=== PATIENT | female | born 1965 | race Caucasian/White ===

== ENCOUNTER 2018-04-17 13:07 | Emergency (ER) | END 2018-04-17 14:22 | disposition home or self-care (01) ==

== ENCOUNTER 2018-05-27 17:02 | Emergency (ER) | END 2018-05-27 19:58 | disposition home or self-care (01) ==

== ENCOUNTER 2018-10-17 09:17 | Inpatient (IN) | payer MEDICAID ==
[~2018-10-17] VITALS: Ht 162.6 cm; Wt 83.3 kg
[~2018-10-17 09:17] MED LIST: ALBU18HF INHALATION; BENZ-6 PO; OFLO5DRO46 LEFT EYE; PRED20TA PO
[2018-10-17] MEDS ORDERED: ASPIRIN 325 MG TAB PO ONE (11:00)
--- NOTE | 2018-10-17 11:04 | ERD ---
ER Documentation Chief Complaint Chief Complaint numbess on the left face, arm leg - started 8 am today HPI 53-year-old female presents to the emergency department complaining of left- sided body numbness. Patient was in her usual state of health, with a last known well time of 2 days ago, at which time she began developing a nonspecific dizziness and a nonspecific headache. This was not acute in onset or thunderclap in nature but continued throughout the last 2 days. Today, she began developing numbness about the left side of her face, upper extremity and lower extremity all on the left side. She had no difficulty speaking, focal weakness or numbness. ROS All systems reviewed and are negative except as per history of present illness. Medications Home Meds Active Scripts Albuterol Sulfate* (Ventolin HFA*) 18 Gm Hfa.aer.ad, 2 PUFF INHALATION Q4H, #1 INHALER Prov:WILIAN LUNA PA-C 05/27/18 Benzonatate* (Tessalon Perle*) 100 Mg Capsule, 100 MG PO Q8H PRN for COUGH, #20 CAP Prov:WILIAN LUNA PA-C 05/27/18 Prednisone* (Prednisone*) 20 Mg Tab, 40 MG PO DAILY for 4 Days, TAB Prov:WILIAN LUNA PA-C 05/27/18 Ofloxacin* (Ocuflox*) 0.3%-5 Ml Ophth Drops, 1 DROP LEFT EYE QID, #1 BOTTLE Prov:ALEXIS JOHNSON PA-C 04/17/18 Allergies Allergies: Coded Allergies: No Known Allergy (Unverified , 04/17/18) PMhx/Soc Medical and Surgical Hx: pt denies Medical Hx, pt denies Surgical Hx Hx Alcohol Use: No Hx Substance Use: No Hx Tobacco Use: No Smoking Status: Never smoker FmHx Noncontributory for chief complaint Physical Exam Vitals Vital Signs Date Temp Pulse Resp B/P (MAP) Pulse Ox O2 O2 Flow FiO2 Time Delivery Rate 10/17/18 Nasal 2 09:35 Cannula 10/17/18 98.4 72 19 149/91 98 09:19 (110) Physical Exam GENERAL: The patient is well developed and appropriate for usual state of health in no apparent distress HEENT: Pupils equal, round, and reactive to light. EOMI. There is no scleral icterus. NECK: C-spine is soft and supple, there is no meningismus. There is no cervical lymphadenopathy. LUNGS: Clear to auscultation bilaterally. There are no rales, wheezes or rhonchi. HEART: Regular rate and rhythm, no murmurs, clicks, rubs or gallops. ABDOMEN: Soft, non-tender, non-distended. There are bowel sounds in all four quadrants. No rebound or guarding. EXTREMITIES: There is no peripheral cyanosis or edema. No focal swelling or er ythema. Neuro: Patient is awake, alert, oriented. Pupils are midrange, equal round and reactive to light. No nystagmus is noted. No diplopia is noted. No visual field deficits is noted. Face is symmetric, tongue is midline. Patient has subjective sensory deficits on the left side of the face when compared to the right. Motor strength is normal without drift in both upper extremities and lo wer extremities. Sensory examination is subjectively diminished on the left upper and lower extremity. Gait was assessed and was noted to be normal. Finger to nose is normal bilaterally. Speech is fluent. Comprehension is fluent SKIN: No rash or concerns. HEME/LYMPHATIC: There is no evidence of excessive bruising or lymphedema. PSYCHIATRIC: The patient does not appear anxious or depressed. Result Diagram: 10/17/18 0936 10/17/18 0936 Results 24 hrs Laboratory Tests Test 10/17/18 09:36 White Blood Count 7.6 10^3/ul Red Blood Count 4.65 10^6/ul Hemoglobin 13.8 g/dl Hematocrit 41.7 % Mean Corpuscular Volume 89.7 fl Mean Corpuscular Hemoglobin 29.7 pg Mean Corpuscular Hemoglobin Concent 33.1 g/dl Red Cell Distribution Width 13.2 % Platelet Count 310 10^3/UL Mean Platelet Volume 10.7 fl Immature Granulocytes % 0.500 % Neutrophils % 56.9 % Lymphocytes % 30.1 % Monocytes % 7.9 % Eosinophils % 3.9 % Basophils % 0.7 % Nucleated Red Blood Cells % 0.0 /100WBC Immature Granulocytes # 0.040 10^3/ul Neutrophils # 4.3 10^3/ul Lymphocytes # 2.3 10^3/ul Monocytes # 0.6 10^3/ul Eosinophils # 0.3 10^3/ul Basophils # 0.1 10^3/ul Nucleated Red Blood Cells # 0.0 10^3/ul Prothrombin Time 12.1 Sec Prothrombin Time Ratio 0.9 INR International Normalized Ratio 0.89 Activated Partial Thromboplast Time 30.6 Sec Sodium Level 140 mmol/L Potassium Level 4.0 mmol/L Chloride Level 103 mmol/L Carbon Dioxide Level 27 mmol/L Anion Gap 10 Blood Urea Nitrogen 13 mg/dl Creatinine 0.66 mg/dl Est Glomerular Filtrat Rate mL/min > 60 mL/min Glucose Level 85 mg/dl Hemoglobin A1c 5.4 % Calcium Level 9.5 mg/dl Total Bilirubin 0.9 mg/dl Direct Bilirubin 0.00 mg/dl Indirect Bilirubin 0.9 mg/dl Aspartate Amino Transf (AST/SGOT) 29 IU/L Alanine Aminotransferase (ALT/SGPT) 31 IU/L Alkaline Phosphatase 80 IU/L Troponin I < 0.012 ng/ml Total Protein 8.0 g/dl Albumin 4.5 g/dl Globulin 3.50 g/dl Albumin/Globulin Ratio 1.28 Triglycerides Level 188 mg/dl Cholesterol Level 233 mg/dl LDL Cholesterol, Calculated 149 mg/dl HDL Cholesterol 46 mg/dl Cholesterol/HDL Ratio 5.0 RATIO Current Medications Medications Dose Sig/Smith[place] Start Time Status Last (Trade) Ordered Route PRN Stop Time Admin Dose Reason Admin Aspirin 325 mg ONCE ONCE 10/17/18 (Aspirin) PO 11:00 10/17/18 11:01 Procedures/MDM Patient was taken to a room, seen and evaluated. Comfort measures were initiated. Diagnostic tests were ordered and reviewed. 3 LEAD RHYTHM STRIP: Normal sinus rhythm without ectopy EK lead EKG reviewed by myself: Normal Sinus Rhythm Normal [place] and intervals No ST elevation, depression, or T wave inversion Impression: Normal EKG RADIOLOGY: Reviewed with the radiologist CONSULTATION: Hospitalist was notified for admission REEVALUATION: 1045: Diagnostic tests were appreciated. Patient remained neurologically unchanged and stable. Blood pressure remained stable. MEDICAL DECISION MAKIN-year-old female resents with new onset neurologic symptoms that are over 2 days old. Symptoms are nonspecific and she has an NIH SS of 0 with only subjective sensory deficits. Overall, it is unclear if this is truly stroke related or not. However, given her ongoing symptoms and as per my discussions with her, we will admit for an MRI and further evaluation. Even if this is a stroke, she is out of the window for TPA or vascular intervention especially given her low NIH SS score. Departure Diagnosis: Primary Impression: Numbness Condition: Fair YANIRA SIMS Oct 17, 2018 11:04
--- NOTE | 2018-10-17 13:54 | HP ---
Date/Time of Note Date/Time of Note DATE: 10/17/18 TIME: 13:50 Assessment/Plan VTE Prophylaxis Pharmacological prophylaxis: LMWH Lines/Catheters IV [facility]from [facility] [place] [facility] Assessment/Plan Hospital Course 53-year-old female who presents with a 2-day history of left-sided numbness admitted and managed for follows: 1. Left-sided numbness rule out acute CVA vs TIA: Symptoms improved 2. Headaches and dizziness associated with above 3. Dyslipidemia with hypertriglyceridemia and hypercholesterolemia Plan: Admit to telemetry, stroke workup, ACS rule out, blood pressure management, rule out comorbidities like diabetes, thyroid disease. Statin therapy, neurology consult. Further interventions per course Result Diagram: 10/17/18 0936 10/17/18 0936 Results 24hrs Laboratory Tests Test 10/17/18 09:36 White Blood Count 7.6 Red Blood Count 4.65 Hemoglobin 13.8 Hematocrit 41.7 Mean Corpuscular Volume 89.7 Mean Corpuscular Hemoglobin 29.7 Mean Corpuscular Hemoglobin Concent 33.1 Red Cell Distribution Width 13.2 Platelet Count 310 Mean Platelet Volume 10.7 H Immature Granulocytes % 0.500 H Neutrophils % 56.9 Lymphocytes % 30.1 Monocytes % 7.9 Eosinophils % 3.9 Basophils % 0.7 Nucleated Red Blood Cells % 0.0 Immature Granulocytes # 0.040 H Neutrophils # 4.3 Lymphocytes # 2.3 Monocytes # 0.6 Eosinophils # 0.3 Basophils # 0.1 Nucleated Red Blood Cells # 0.0 Prothrombin Time 12.1 Prothrombin Time Ratio 0.9 INR International Normalized Ratio 0.89 Activated Partial Thromboplast Time 30.6 Sodium Level 140 Potassium Level 4.0 Chloride Level 103 Carbon Dioxide Level 27 Anion Gap 10 Blood Urea Nitrogen 13 Creatinine 0.66 Est Glomerular Filtrat Rate mL/min > 60 Glucose Level 85 Hemoglobin A1c 5.4 Calcium Level 9.5 Total Bilirubin 0.9 Direct Bilirubin 0.00 Indirect Bilirubin 0.9 Aspartate Amino Transf (AST/SGOT) 29 Alanine Aminotransferase (ALT/SGPT) 31 Alkaline Phosphatase 80 Troponin I < 0.012 Total Protein 8.0 Albumin 4.5 Globulin 3.50 H Albumin/Globulin Ratio 1.28 Triglycerides Level 188 H Cholesterol Level 233 H LDL Cholesterol, Calculated 149 HDL Cholesterol 46 Cholesterol/HDL Ratio 5.0 HPI/ROS Admit Date/Time Admit Date/Time Hx of Present Illness 53-year-old female who had presented to the emergency room with left-sided numbness that started approximately 2 days ago with some associated dizziness and frontal headaches. AND DIZZINESS There is no focal weakness, at this time symptoms have somewhat improved. She is being admitted for stroke workup. There is no fever. No chest pain, no abdominal pain, no nausea or vomiting. She denies dysuria or hematuria.This is the first episode, patient has not had history of similar in the past Past medical history: patient denies Surgical history: DENIES Allergies penicillins Social history denies tobacco alcohol or illicit drug use Family history: Noncontributory Review of systems: 12 point review of system was done pertinent findings per HPI ROS see hpi PMH/Family/Social Past Medical History see hpi Coded Allergies: Penicillins (Unverified Allergy, Unknown, 10/17/18) Social History Smoking Status: Never smoker Exam/Review of Systems Vital Signs Vitals Vital Signs Date Temp Pulse Resp B/P (MAP) Pulse Ox O2 O2 Flow FiO2 Time Delivery Rate 10/17/18 Nasal 2 09:35 Cannula 10/17/18 98.4 72 19 149/91 98 09:19 (110) Exam Exam General: A&O x3, answering questions appropriately HEENT: NC/ AT. PERRL. EOM intact Neck: supple CVS: S1, S2, RRR. no murmurs. no pain on chest wall palpation Lungs: CTA b/l. no wheezing or rhonchi Abd: soft, nontender, +BS Ext: moving all extremities skin: no rashes Additional Comments I reviewed EKG Rate: Within normal limits Rhythm: sinus Note: No ST elevation or depressions noted concerning for acute ischemic event. PROCEDURE: CT Brain without contrast. CLINICAL INDICATION: Possible stroke TECHNIQUE: A CT of the brain was performed utilizing axial imaging from the skull base through the vertex without IV contrast. Multiplanar reformatted imag es were made. Images were reviewed on a PACS workstation. CTDIvol: 48.07 mGy DLP: 799.20 mGycm DICOM images are available. One or more of the following dose reduction techniques were utilized: 1.) Automated exposure control 2.) Adjustment of the mA +/- kV according to patient's size 3.) Use of iterative reconstruction technique. COMPARISON: None FINDINGS: CALVARIUM: Regional bones are intact. SINUSES: Paranasal sinuses and mastoid air cells are clear. BRAIN: There is no evidence of intracranial hemorrhage. Prominence of ventricles and cisterns is normal for age. [place] - white differentiation is preserved and there is no evidence of an acute or subacute territorial infarction. No intracranial mass or mass effect. IMPRESSION: Negative unenhanced head CT. RPTAT: HJBB Physician Lakshmi Date Time Electronically viewed and signed by Physician Lakshmi on 10/17/2018 10:01 PROCEDURE: XR Chest. CLINICAL INDICATION: Stroke. TECHNIQUE: Chest x-ray, single view. COMPARISON: None. FINDINGS: Medical/support devices: None. Heart/mediastinum: The cardiomediastinal silhouette is normal. Pulmonary vascular markings are normal. Lungs: Low lung volumes are observed. There is no focal pulmonary parenchymal consolidation or evidence of pleural effusion. Additional: Skeletal structures are unremarkable. The visualized upper abdomen is unremarkable. IMPRESSION: Unremarkable chest x-ray. RPTAT: AAQQ .Ronna Kauffman MD, MD Date Time Electronically viewed and signed by .Ronna Kauffman MD, MD on 10/17/2018 09:49 .T/ CC: YANIRA SIMS [phone] MERLE MORENO Oct 17, 2018 13:54
[2018-10-17] MEDS ORDERED: HYDROCODONE/APAP (5/325) TAB PO PRN (14:00)
[2018-10-17] MEDS ORDERED: DOCUSATE SODIUM 100 MG CAP PO PRN (14:00)
[2018-10-17] MEDS ORDERED: ONDANSETRON 4 MG INJ IV PRN (14:00)
--- NOTE | 2018-10-17 16:50 | RADRPT ---
Echocardiogram Report Patient Name: TAMARA MARTÍNEZPatient ID: [id number] : 1965 (53y 4m)Study Date: 10/17/2018 2:11:46 PM Gender: FAccession #: [id number] Tech: TREVON Location: Ref.Physician: MERLE MORENO Height(Cm): BSA: Weight(Kg): Quality: GoodAccount #: Procedures: Echocardiographic Report: Transthoracic echocardiogram with complete 2D, M-Mode, and doppler examination. Indications: Transient Ischemic Attack. Measurements: 2D/M Mode Doppler Measurement Value Normal Range Measurement Value Normal Range AoR Diam MM 3.1 [ 2.3 - 3.1 ] cm CHANTEL Vmax 2.5 [ 2.0 - 4.0 ] cm2 ACS MM 2.0 [ 2.7 - 3.3 ] cm AV Mean Louis 0.8 [ 70.0 - 90.0 ] cm/sec LA/Ao MM 0.9 ratio AV Mean PG 3.0 [ 2.0 - 4.0 ] mmHg LA Dimen MM 2.7 AV Peak Louis 1.1 [ 100.0 - 170.0 ] cm/sec IVS/LVPW 2D 1.0 ratio AV Peak PG 5.0 [ 2.0 - 9.0 ] mmHg LVOT Diam 2.0 [ 2.1 - 2.5 ] cm AV VTI 25.1 cm LVOT Area 3.1 cm2 LVOT Peak Louis 0.9 [ 70.0 - 110.0 ] cm/sec LVOT Peak PG 3.0 [ 2.0 - 6.0 ] mmHg MV E Peak Louis 0.8 [ 60.0 - 130.0 ] cm/sec MV A Peak Louis 1.0 [ 100.0 - 120.0 ] cm/sec MV E/A 0.8 [ 0.8 - 1.5 ] ratio MV Decel Time 222 [ 104 - 258 ] msec Lat E` Louis 0.1 [ 10.0 - 15.0 ] cm/sec Med E` Louis 0.1 cm/sec MV E/A 0.8 [ 0.8 - 1.5 ] ratio TR Peak Louis 2.3 [ 100.0 - 280.0 ] cm/sec TR Peak PG 22.0 mmHg PV Peak Louis 0.5 [ 40.0 - 80.0 ] cm/sec PV Peak PG 1.0 mmHg Findings: Left Ventricle: Normal left ventricular systolic function. Normal left ventricular cavity size. Normal left ventricular wall thickness. Ejection fraction is visually estimated at 55-60 %. Tissue Doppler/Mitral Doppler indices are consistent with impaired relaxation (Stage I diastolic dysfunction). Right Ventricle: Normal right ventricular size. Normal right ventricular systolic function. Left Atrium: There is mild enlargement of left atrium. Right Atrium: The right atrium is normal in size. Mitral Valve: Normal appearance of the mitral valve. Mild mitral valve regurgitation. Aortic Valve: Normal appearance of the aortic valve. No significant aortic stenosis or insufficiency. Tricuspid Valve: Normal appearance of the tricuspid valve. Estimated peak PA systolic pressure 25 mmHg. There is mild tricuspid regurgitation. Pulmonic Valve: Normal pulmonic valve appearance. There is trace pulmonic regurgitation. Pericardium: Normal pericardium with no significant pericardial effusion. Aorta: Normal aortic root. IVC: Normal size and normal respiratory collapse consistent with normal right atrial pressure. Conclusions: Normal left ventricular systolic function. Normal left ventricular cavity size. Normal left ventricular wall thickness. Ejection fraction is visually estimated at 55-60 %. Tissue Doppler/Mitral Doppler indices are consistent with impaired relaxation (Stage I diastolic dysfunction). No significant valvular stenosis or regurgitation seen. Estimated peak PA systolic pressure 25 mmHg based on RA pressure of 3 mmHg. Electronically Signed By: Sebas Quinteros 2018-10-17 16:48:58 PDT
[2018-10-17 21:48] VITALS: PULSE 67
[2018-10-17] MEDS: FAMOTIDINE 20 MG TAB PO SCH (22:13)
[2018-10-17] MEDS: ATORVASTATIN 20 MG TAB PO SCH (22:13)
[2018-10-17 22:22] VITALS: Ht 162.6 cm; Wt 83.3 kg
[2018-10-17 23:00] VITALS: BP 147/82; PULSE 64; RESP 18
[2018-10-18] VITALS (11 sets, daily range): BP systolic 107–138; BP diastolic 60–79; PULSE 60–79; RESP 18–20
--- NOTE | 2018-10-18 07:09 | CONS ---
Assessment/Plan Assessment/Plan Hospital Course 53 F s/ reported PMHx, who presents for evaluation of left hemisensory loss in the context of headache and dizziness. The clinical picture is most ominously concerning for lacunar infarction. Complex migraine is additionally considered, though a Dx of exclusion... Head CT was unremarkable. UDS neg P: Await MRI brain to evaluate for acute ischemia Agree w/ asa/liptior daily for now, pending the above Pain control and other medical management per primary PT/OT/ST as necessary Will follow Consultation Date/Type/Reason Admit Date/Time Type of Consult Neurology Reason for Consultation left sided numbness Requesting Provider: MERLE MORENO Date/Time of Note DATE: 10/18/18 TIME: 07:09 Hx of Present Illness 53-year-old female who had presented to the emergency room with left-sided numbness that started approximately 2 days ago with some associated dizziness and frontal headaches. There is no focal weakness, at this time symptoms have s omewhat improved. She is being admitted for stroke workup. There is no fever. No chest pain, no abdominal pain, no nausea or vomiting. She denies dysuria or hematuria.This is the first episode, patient has not had history of similar in the past Past medical history: patient denies Surgical history: Allergies penicillins Social history denies tobacco alcohol or illicit drug use Family history: Noncontributory 12 PT ROS ow neg Exam/Review of Systems Exam Vitals Vital Signs Date Temp Pulse Resp B/P (MAP) Pulse Ox O2 O2 Flow FiO2 Time Delivery Rate 10/18/18 97.9 65 20 127/60 99 04:10 (82) 10/17/18 Room Air 20:29 10/17/18 2 09:35 Intake and Output 10/17/18 10/17/18 10/18/18 1515:00 23:00 07:00 IntakeIntake Total 50 ml BalanceBalance 50 ml Exam PE: Gen Appearance: No Apparent Distress HEENT: Normocephalic Cardiovascular: Regular rate Lungs: Clear bilaterally Abdomen: Soft Extremities: Dry NE: The patient was alert and oriented. Language was normal. Fund of knowledge was normal. Pupils were equal and reactive to light. There was no afferent pupillary defect. Visual novak were normal. Funduscopic examination was limited. Extra-ocular movements were full. Ptosis was absent. There was no nystagmus. Facial sensation was normal. Face was symmetric with normal strength. Hearing was intact. Palate movements were normal. Neck strength was normal. There was normal tongue bulk and speed of movement. Tone was normal. Muscle bulk was normal. I did not see fasciculations. Arms and legs were strong. Vibration sensation and sensation to light touch was diminished on the L. Temperature and pinprick sensation was normal. Rapid alternating movements were normal. There was no dysmetria. There was no intention tremor. Gait was deferred due to bedrest. Arm and leg reflexes were 2+ and symmetric. Santiago's sign was absent. Plantar responses were flexor. Results Result Diagram: 10/18/18 0517 10/18/18 0517 Results 24hrs Laboratory Tests Test 10/17/18 09:36 10/17/18 19:58 10/18/18 05:17 White Blood Count 7.6 8.2 Red Blood Count 4.65 4.69 Hemoglobin 13.8 13.9 Hematocrit 41.7 41.5 Mean Corpuscular Volume 89.7 88.5 Mean Corpuscular Hemoglobin 29.7 29.6 Mean Corpuscular 33.1 33.5 Hemoglobin Concent Red Cell Distribution Width 13.2 13.5 Platelet Count 310 318 Mean Platelet Volume 10.7 H 10.9 H Immature Granulocytes % 0.500 H 0.500 H Neutrophils % 56.9 56.6 Lymphocytes % 30.1 31.3 Monocytes % 7.9 7.2 Eosinophils % 3.9 3.5 Basophils % 0.7 0.9 Nucleated Red Blood Cells % 0.0 0.0 Immature Granulocytes # 0.040 H 0.040 H Neutrophils # 4.3 4.7 Lymphocytes # 2.3 2.6 Monocytes # 0.6 0.6 Eosinophils # 0.3 0.3 Basophils # 0.1 0.1 Nucleated Red Blood Cells # 0.0 0.0 Prothrombin Time 12.1 Prothrombin Time Ratio 0.9 INR International 0.89 Normalized Ratio Activated Partial Thromboplast 30.6 Time Sodium Level 140 139 Potassium Level 4.0 4.0 Chloride Level 103 102 Carbon Dioxide Level 27 27 Anion Gap 10 10 Blood Urea Nitrogen 13 16 Creatinine 0.66 0.78 Est Glomerular Filtrat > 60 > 60 Rate mL/min Glucose Level 85 93 Hemoglobin A1c 5.4 Calcium Level 9.5 9.5 Total Bilirubin 0.9 Direct Bilirubin 0.00 Indirect Bilirubin 0.9 Aspartate Amino 29 Transf (AST/SGOT) Alanine 31 Aminotransferase (ALT/SGPT) Alkaline Phosphatase 80 Troponin I < 0.012 Total Protein 8.0 Albumin 4.5 Globulin 3.50 H Albumin/Globulin Ratio 1.28 Triglycerides Level 188 H Cholesterol Level 233 H LDL Cholesterol, Calculated 149 HDL Cholesterol 46 Cholesterol/HDL Ratio 5.0 Urine Color YELLOW Urine Clarity SLIGHTLY CLOUDY A Urine pH 6.0 Urine Specific Pedro 1.010 Urine Ketones NEGATIVE Urine Nitrite NEGATIVE Urine Bilirubin NEGATIVE Urine Urobilinogen NEGATIVE Urine Leukocyte Esterase 1+ H Urine Microscopic RBC 5 Urine Microscopic WBC 19 H Urine Squamous Epithelial Cells MODERATE Urine Bacteria FEW A Urine Hemoglobin 2+ H Urine Glucose NEGATIVE Urine Total Protein NEGATIVE Urine Opiates Screen Negative Urine Barbiturates Negative Urine Amphetamines Screen Negative Urine Benzodiazepines Screen Negative Urine Cocaine Screen Negative Urine Cannabinoids Negative Phosphorus Level 5.0 H Magnesium Level 2.2 Medications Medication Current Medications Aspirin (Halfprin) 81 mg DAILY PO ; Start 10/18/18 at 09:00 Atorvastatin Calcium (Lipitor) 20 mg HS PO Last administered on 10/17/18at 22:13; Admin Dose 20 MG; Start 10/17/18 at 21:00 Ondansetron HCl (Zofran Inj) 4 mg Q6H PRN IV NAUSEA AND/OR VOMITING Last administered on 10/17/18at 20:26; Admin Dose 4 MG; Start 10/17/18 at 14:00 Acetaminophen/ Hydrocodone Bitart ([place] (5/325)) 1 tab Q6H PRN PO MODERATE PAIN LEVEL 4-6; Start 10/17/18 at 14:00 Docusate Sodium (Colace) 100 mg BID PRN PO CONSTIPATION; Start 10/17/18 at 14:00 Famotidine (Pepcid) 20 mg BID PO Last administered on 10/17/18at 22:13; Admin Dose 20 MG; Start 10/17/18 at 21:00 Lorazepam (Ativan) 0.5 mg ONCE ONCE IV ; Start 10/18/18 at 09:00; Stop 10/18/18 at 09:01 Past Medical History reviewed Home Meds Discontinued Scripts Albuterol Sulfate* (Ventolin HFA*) 18 Gm Hfa.aer.ad, 2 PUFF INHALATION Q4H, #1 INHALER Prov:LUNA,WILIAN Palencia PA-C 05/27/18 Benzonatate* (Tessalon Perle*) 100 Mg Capsule, 100 MG PO Q8H PRN for COUGH, #20 CAP Prov:CHERYLWILIAN Palencia PA-C 05/27/18 Prednisone* (Prednisone*) 20 Mg Tab, 40 MG PO DAILY for 4 Days, TAB Prov:WILIAN LUNA PA-C 05/27/18 Ofloxacin* (Ocuflox*) 0.3%-5 Ml Ophth Drops, 1 DROP LEFT EYE QID, #1 BOTTLE Prov:ALEXIS JOHNSON PA-C 04/17/18 Medications Current Medications Aspirin (Halfprin) 81 mg DAILY PO ; Start 10/18/18 at 09:00 Atorvastatin Calcium (Lipitor) 20 mg HS PO Last administered on 10/17/18at 22:13; Admin Dose 20 MG; Start 10/17/18 at 21:00 Ondansetron HCl (Zofran Inj) 4 mg Q6H PRN IV NAUSEA AND/OR VOMITING Last administered on 10/17/18at 20:26; Admin Dose 4 MG; Start 10/17/18 at 14:00 Acetaminophen/ Hydrocodone Bitart ([place] (5/325)) 1 tab Q6H PRN PO MODERATE PAIN LEVEL 4-6; Start 10/17/18 at 14:00 Docusate Sodium (Colace) 100 mg BID PRN PO CONSTIPATION; Start 10/17/18 at 14:00 Famotidine (Pepcid) 20 mg BID PO Last administered on 10/17/18at 22:13; Admin Dose 20 MG; Start 10/17/18 at 21:00 Lorazepam (Ativan) 0.5 mg ONCE ONCE IV ; Start 10/18/18 at 09:00; Stop 10/18/18 at 09:01 Allergies: Coded Allergies: Penicillins (Unverified Allergy, Unknown, 10/17/18) Past Surgical History reviewed Social History reviewed Smoking Status: Current some day smoker ADONAY JASON Oct 18, 2018 07:09 COLT ALLEN NP Oct 18, 2018 15:03
[2018-10-18] MEDS: ASPIRIN (EC) 81 MG TAB PO SCH (08:07)
[2018-10-18] MEDS: FAMOTIDINE 20 MG TAB PO SCH ×2 (08:07→20:11)
[2018-10-18] MEDS ORDERED: LORAZEPAM 2 MG INJ IV ONE (09:00)
--- NOTE | 2018-10-18 11:28 | PN ---
Date/Time of Note Date/Time of Note DATE: 10/18/18 TIME: 11:19 Assessment/Plan VTE Prophylaxis Risk score (from Ns)>0 risk: 2 SCD applied (from Ns): Yes Pharmacological prophylaxis: heparin Lines/Catheters IV Catheter Type (from [facility]): Saline Lock Assessment/Plan Hospital Course 53-year-old female who presents with a 2-day history of left-sided numbness admitted and managed for follows: 1. Left-sided numbness rule out acute CVA vs TIA vs bells palsy : -symptoms improved transiently but are still persistent -MRI is still pending, patient was unable to do the MRI yesterday, plan is to try again today with premedication with Ativan at 5pm -Patient also has been having upper jaw discomfort and states it seems numbness is starting in L upper jaw and radiating down her L side -will also get CT face to r/o dental infection causing a bells palsy kind of syndrome 2. Headaches and dizziness associated with above -symptoms relieved by tylenol 3. Dyslipidemia with hypertriglyceridemia and hypercholesterolemia 4. Possible UTI -no symptoms, no further intervention Dispo : -MRI Brain and Ct face Result Diagram: 10/18/1851610/18/1817 Results 24hrs Laboratory Tests Test 10/17/18 19:58 10/18/18 05:17 Urine Color YELLOW Urine Clarity SLIGHTLY CLOUDY A Urine pH 6.0 Urine Specific Bunn 1.010 Urine Ketones NEGATIVE Urine Nitrite NEGATIVE Urine Bilirubin NEGATIVE Urine Urobilinogen NEGATIVE Urine Leukocyte Esterase 1+ H Urine Microscopic RBC 5 Urine Microscopic WBC 19 H Urine Squamous Epithelial Cells MODERATE Urine Bacteria FEW A Urine Hemoglobin 2+ H Urine Glucose NEGATIVE Urine Total Protein NEGATIVE Urine Opiates Screen Negative Urine Barbiturates Negative Urine Amphetamines Screen Negative Urine Benzodiazepines Screen Negative Urine Cocaine Screen Negative Urine Cannabinoids Negative White Blood Count 8.2 Red Blood Count 4.69 Hemoglobin 13.9 Hematocrit 41.5 Mean Corpuscular Volume 88.5 Mean Corpuscular Hemoglobin 29.6 Mean Corpuscular Hemoglobin Concent 33.5 Red Cell Distribution Width 13.5 Platelet Count 318 Mean Platelet Volume 10.9 H Immature Granulocytes % 0.500 H Neutrophils % 56.6 Lymphocytes % 31.3 Monocytes % 7.2 Eosinophils % 3.5 Basophils % 0.9 Nucleated Red Blood Cells % 0.0 Immature Granulocytes # 0.040 H Neutrophils # 4.7 Lymphocytes # 2.6 Monocytes # 0.6 Eosinophils # 0.3 Basophils # 0.1 Nucleated Red Blood Cells # 0.0 Sodium Level 139 Potassium Level 4.0 Chloride Level 102 Carbon Dioxide Level 27 Anion Gap 10 Blood Urea Nitrogen 16 Creatinine 0.78 Est Glomerular Filtrat Rate mL/min > 60 Glucose Level 93 Calcium Level 9.5 Phosphorus Level 5.0 H Magnesium Level 2.2 Subjective 24 Hr Interval Summary Free Text/Dictation no real changes, still having the L sided numbness especially in the face but headaches are relieved with acetaminophen Exam/Review of Systems Exam Vitals Vital Signs Date Temp Pulse Resp B/P (MAP) Pulse Ox O2 O2 Flow FiO2 Time Delivery Rate 10/18/18 72 08:33 10/18/18 98.0 18 122/76 97 07:25 (91) 10/17/18 Room Air 20:29 10/17/18 2 09:35 Intake and Output 10/17/18 10/17/18 10/18/18 1515:00 23:00 07:00 IntakeIntake Total 50 ml BalanceBalance 50 ml Constitutional: alert, oriented Head: normocephalic Eyes: PERRL ENMT: nl external ears & nose, nl lips & teeth, nl nasal mucosa & septum, mucos a pink and moist Neck: supple Respiratory: clear to auscultation, diminished breath sounds Cardiovascular: regular rate and rhythm; No murmurs/extra sounds Gastrointestinal: soft, non-tender, bowel sounds Extremities: No edema Neurological: nl mental status, numbness; No focal weakness Results Results 24hrs Laboratory Tests Test 10/17/18 19:58 10/18/18 05:17 Urine Color YELLOW Urine Clarity SLIGHTLY CLOUDY A Urine pH 6.0 Urine Specific Bunn 1.010 Urine Ketones NEGATIVE Urine Nitrite NEGATIVE Urine Bilirubin NEGATIVE Urine Urobilinogen NEGATIVE Urine Leukocyte Esterase 1+ H Urine Microscopic RBC 5 Urine Microscopic WBC 19 H Urine Squamous Epithelial Cells MODERATE Urine Bacteria FEW A Urine Hemoglobin 2+ H Urine Glucose NEGATIVE Urine Total Protein NEGATIVE Urine Opiates Screen Negative Urine Barbiturates Negative Urine Amphetamines Screen Negative Urine Benzodiazepines Screen Negative Urine Cocaine Screen Negative Urine Cannabinoids Negative White Blood Count 8.2 Red Blood Count 4.69 Hemoglobin 13.9 Hematocrit 41.5 Mean Corpuscular Volume 88.5 Mean Corpuscular Hemoglobin 29.6 Mean Corpuscular Hemoglobin Concent 33.5 Red Cell Distribution Width 13.5 Platelet Count 318 Mean Platelet Volume 10.9 H Immature Granulocytes % 0.500 H Neutrophils % 56.6 Lymphocytes % 31.3 Monocytes % 7.2 Eosinophils % 3.5 Basophils % 0.9 Nucleated Red Blood Cells % 0.0 Immature Granulocytes # 0.040 H Neutrophils # 4.7 Lymphocytes # 2.6 Monocytes # 0.6 Eosinophils # 0.3 Basophils # 0.1 Nucleated Red Blood Cells # 0.0 Sodium Level 139 Potassium Level 4.0 Chloride Level 102 Carbon Dioxide Level 27 Anion Gap 10 Blood Urea Nitrogen 16 Creatinine 0.78 Est Glomerular Filtrat Rate mL/min > 60 Glucose Level 93 Calcium Level 9.5 Phosphorus Level 5.0 H Magnesium Level 2.2 Imaging Imaging PROCEDURE: US Carotids. CLINICAL INDICATION: Transient ischemic attack TECHNIQUE: Multiple sonographic of the carotid arteries were obtained utilizing handy scale imaging. Color and Doppler imaging was performed. The images were reviewed on a PACS workstation. COMPARISON: No prior studies are available for comparison. FINDINGS: Location Right Left CCA 66 cm/sec 65 cm/sec Prox ICA 65 cm/sec 65 cm/sec Mid ICA 56 cm/sec 76 cm/sec Dist ICA 49 cm/sec 63 cm/sec ECA 51 cm/sec 57 cm/sec ICA/CCA 1.1 1.2 Antegrade flow is seen within the vertebral arteries bilaterally. No significant plaque is seen within the carotid system bilaterally. No hemodynamically significant stenosis or occlusion is identified. IMPRESSION: 1. No evidence for hemodynamically significant stenosis- validated velocity measurements with angiographic measurements, velocity criteria are extrapolated from diameter data as defined by the Society of Radiologists in Ultrasound Consensus Conference Radiology 2003; 229;340-346. This study does indirectly reference the measurement of the distal ICA diameter as the denominator for stenosis measurement. 2. Antegrade flow seen within the vertebral arteries bilaterally. Patient Name: TAMARA MARTÍNEZ : 1965 (53y 4m) Study Date: 10/17/2018 2:11:46 PM Gender: F Tech: TREVON Location: Ref.Physician: MERLE MORENO Height(Cm): BSA: Weight(Kg): Quality: Good Account #: Procedures: Echocardiographic Report: Transthoracic echocardiogram with complete 2D, M-Mode, and doppler examination. Indications: Transient Ischemic Attack. Measurements: 2D/M Mode Doppler Measurement Value Normal Range Measurement Value Normal Range AoR Diam MM 3.1 [ 2.3 - 3.1 ] cm CHANTEL Vmax 2.5 [ 2.0 - 4.0 ] cm2 ACS MM 2.0 [ 2.7 - 3.3 ] cm AV Mean Louis 0.8 [ 70.0 - 90.0 ] cm/sec LA/Ao MM 0.9 ratio AV Mean PG 3.0 [ 2.0 - 4.0 ] mmHg LA Dimen MM 2.7 AV Peak Louis 1.1 [ 100.0 - 170.0 ] cm/sec IVS/LVPW 2D 1.0 ratio AV Peak PG 5.0 [ 2.0 - 9.0 ] mmHg LVOT Diam 2.0 [ 2.1 - 2.5 ] cm AV VTI 25.1 cm LVOT Area 3.1 cm2 LVOT Peak Louis 0.9 [ 70.0 - 110.0 ] cm/sec LVOT Peak PG 3.0 [ 2.0 - 6.0 ] mmHg MV E Peak Louis 0.8 [ 60.0 - 130.0 ] cm/sec MV A Peak Louis 1.0 [ 100.0 - 120.0 ] cm/sec MV E/A 0.8 [ 0.8 - 1.5 ] ratio MV Decel Time 222 [ 104 - 258 ] msec Lat E` Louis 0.1 [ 10.0 - 15.0 ] cm/sec Med E` Louis 0.1 cm/sec MV E/A 0.8 [ 0.8 - 1.5 ] ratio TR Peak Louis 2.3 [ 100.0 - 280.0 ] cm/sec TR Peak PG 22.0 mmHg PV Peak Louis 0.5 [ 40.0 - 80.0 ] cm/sec PV Peak PG 1.0 mmHg Findings: Left Ventricle: Normal left ventricular systolic function. Normal left ventricular cavity size. Normal left ventricular wall thickness. Ejection fraction is visually estimated at 55-60 %. Tissue Doppler/Mitral Doppler indices are consistent with impaired relaxation (Stage I diastolic dysfunction). Right Ventricle: Normal right ventricular size. Normal right ventricular systolic function. Left Atrium: There is mild enlargement of left atrium. Right Atrium: The right atrium is normal in size. Mitral Valve: Normal appearance of the mitral valve. Mild mitral valve regurgitation. Aortic Valve: Normal appearance of the aortic valve. No significant aortic stenosis or insufficiency. Tricuspid Valve: Normal appearance of the tricuspid valve. Estimated peak PA systolic pressure 25 mmHg. There is mild tricuspid regurgitation. Pulmonic Valve: Normal pulmonic valve appearance. There is trace pulmonic regurgitation. Pericardium: Normal pericardium with no significant pericardial effusion. Aorta: Normal aortic root. IVC: Normal size and normal respiratory collapse consistent with normal right atrial pressure. Conclusions: Normal left ventricular systolic function. Normal left ventricular cavity size. Normal left ventricular wall thickness. Ejection fraction is visually estimated at 55-60 %. Tissue Doppler/Mitral Doppler indices are consistent with impaired relaxation (Stage I diastolic dysfunction). No significant valvular stenosis or regurgitation seen. Estimated peak PA systolic pressure 25 mmHg based on RA pressure of 3 mmHg. Electronically Signed By: Sebas Quinteros 2018-10-17 16:48:58 PDT Medications Medication Current Medications Aspirin (Halfprin) 81 mg DAILY PO Last administered on 10/18/18at 08:07; Admin Dose 81 MG; Start 10/18/18 at 09:00 Atorvastatin Calcium (Lipitor) 20 mg HS PO Last administered on 10/17/18at 22:13; Admin Dose 20 MG; Start 10/17/18 at 21:00 Ondansetron HCl (Zofran Inj) 4 mg Q6H PRN IV NAUSEA AND/OR VOMITING Last a dministered on 10/17/18at 20:26; Admin Dose 4 MG; Start 10/17/18 at 14:00 Acetaminophen/ Hydrocodone Bitart ([place] (5/325)) 1 tab Q6H PRN PO MODERATE PAIN LEVEL 4-6; Start 10/17/18 at 14:00 Docusate Sodium (Colace) 100 mg BID PRN PO CONSTIPATION; Start 10/17/18 at 14:00 Famotidine (Pepcid) 20 mg BID PO Last administered on 10/18/18at 08:07; Admin Dose 20 MG; Start 10/17/18 at 21:00 MERLE MORENO Oct 18, 2018 11:28
[2018-10-18] MEDS ORDERED: ACETAMINOPHEN 325 MG TAB PO PRN (14:30)
[2018-10-18] MEDS ORDERED: LORAZEPAM 2 MG INJ IV SCH (18:00)
[2018-10-18] MEDS: ATORVASTATIN 20 MG TAB PO SCH (20:11)
[2018-10-18] MEDS ORDERED: LORAZEPAM 2 MG INJ IV PRN (22:30)
[2018-10-19] VITALS (12 sets, daily range): BP systolic 118–142; BP diastolic 75–91; PULSE 56–92; RESP 16–19
--- NOTE | 2018-10-19 08:04 | CONS ---
Assessment/Plan Assessment/Plan Hospital Course 53 F s/ reported PMHx, who presents for evaluation of left hemisensory loss in the context of headache and dizziness. The clinical picture could be consistent w/ complex migraine. MRI brain is reassuringly without evidence of acute intracranial pathology. UDS neg P: Start Topamax 25mg bid for migraine ppx, to be titrated to goal as an outpatient Other management per primary PT/OT/ST as necessary Other management and supportive care per primary Will follow Consultation Date/Type/Reason Admit Date/Time Oct 17, 2018 at 10:59 Type of Consult Neurology Reason for Consultation left sided numbness Requesting Provider: MERLE MORENO Date/Time of Note DATE: 10/19/18 TIME: 08:02 24 HR Interval Summary Free Text/Dictation Continues acute care. Pt continues to endorse L sided numbness. States that her headaches occur daily and that ibuprofen OTC usually helps. Exam Vital Signs Vitals Vital Signs Date Temp Pulse Resp B/P (MAP) Pulse Ox O2 O2 Flow FiO2 Time Delivery Rate 10/19/18 98.1 88 19 132/79 97 07:21 (96) 10/17/18 Room Air 20:29 10/17/18 2 09:35 Intake and Output 10/18/18 10/18/18 10/19/18 1515:00 23:00 07:00 IntakeIntake Total 600 ml 480 ml BalanceBalance 600 ml 480 ml Exam PE: Gen Appearance: No Apparent Distress HEENT: Normocephalic Cardiovascular: Regular rate Lungs: Clear bilaterally Abdomen: Soft Extremities: Dry NE: The patient was alert and oriented. Language was normal. Fund of knowledge was normal. Pupils were equal and reactive to light. There was no afferent pupillary defect. Visual novak were normal. Funduscopic examination was limited. Extra-ocular movements were full. Ptosis was absent. There was no nystagmus. Facial sensation was normal. Face was symmetric with normal strength. Hearing was intact. Palate movements were normal. Neck strength was normal. There was normal tongue bulk and speed of movement. Tone was normal. Muscle bulk was normal. I did not see fasciculations. Arms and legs were strong. Vibration sensation and sensation to light touch was diminished on the L face/arm/leg. Temperature and pinprick sensation was normal. Rapid alternating movements were normal. There was no dysmetria. There was no intention tremor. Gait was steady. Arm and leg reflexes were 2+ and symmetric. Santiago's sign was absent. Plantar responses were flexor. ADONAY JASON Oct 19, 2018 08:04 COLT ALLEN NP Oct 19, 2018 13:24
[2018-10-19] MEDS: ASPIRIN (EC) 81 MG TAB PO SCH (09:02)
[2018-10-19] MEDS: FAMOTIDINE 20 MG TAB PO SCH ×2 (09:02→20:28)
--- NOTE | 2018-10-19 12:39 | PN ---
Date/Time of Note Date/Time of Note DATE: 10/19/18 TIME: 12:34 Assessment/Plan VTE Prophylaxis Risk score (from Ns)>0 risk: 2 SCD applied (from Ns): Yes SCD contraindicated: low risk/ambulating Pharmacological prophylaxis: NA/contraindicated Pharm contraindication: low risk/ambulating Lines/Catheters IV [facility]from [facility] Saline Lock Assessment/Plan Hospital Course 53-year-old female who presents with a 2-day history of left-sided numbness admitted and managed for follows: 1. Left-sided numbness rule out acute CVA vs TIA vs bells palsy more likely complicated migraines : -symptoms improved transiently but are still persistent -MRI reviewed and nnegative -fUnable to assess due to clinical statusface CT -trial of steroids and reglan 2. Headaches and dizziness associated with above -symptoms relieved by tylenol 3. Dyslipidemia with hypertriglyceridemia and hypercholesterolemia 4. Possible UTI -no symptoms, no further intervention Dispo : see #1 Result Diagram: 10/19/18 0432 10/19/18 0432 Results 24hrs Laboratory Tests Test 10/19/18 04:32 White Blood Count 8.0 Red Blood Count 4.47 Hemoglobin 13.5 Hematocrit 39.8 Mean Corpuscular Volume 89.0 Mean Corpuscular Hemoglobin 30.2 Mean Corpuscular Hemoglobin Concent 33.9 Red Cell Distribution Width 13.3 Platelet Count 317 Mean Platelet Volume 11.1 H Immature Granulocytes % 0.400 Neutrophils % 54.7 Lymphocytes % 32.5 Monocytes % 7.4 Eosinophils % 4.1 Basophils % 0.9 Nucleated Red Blood Cells % 0.0 Immature Granulocytes # 0.030 Neutrophils # 4.4 Lymphocytes # 2.6 Monocytes # 0.6 Eosinophils # 0.3 Basophils # 0.1 Nucleated Red Blood Cells # 0.0 Sodium Level 141 Potassium Level 3.8 Chloride Level 105 Carbon Dioxide Level 27 Anion Gap 9 Blood Urea Nitrogen 16 Creatinine 0.71 Est Glomerular Filtrat Rate mL/min > 60 Glucose Level 100 Calcium Level 9.5 Subjective 24 Hr Interval Summary Free Text/Dictation still with numbness radiating from her l ear, down her L arm and from her buttock down her legs, ambulant , states that she sometimes has a weak eye on the Left Exam/Review of Systems Exam Vitals Vital Signs Date Temp Pulse Resp B/P (MAP) Pulse Ox O2 O2 Flow FiO2 Time Delivery Rate 10/19/18 98.1 61 18 118/79 96 11:24 (92) 10/17/18 Room Air 20:29 10/17/18 2 09:35 Intake and Output 10/18/18 10/18/18 10/19/18 1515:00 23:00 07:00 IntakeIntake Total 600 ml 480 ml BalanceBalance 600 ml 480 ml Exam General: A&O x3, answering questions appropriately HEENT: NC/ AT. PERRL. EOM intact Neck: supple CVS: S1, S2, RRR. no murmurs. no pain on chest wall palpation Lungs: CTA b/l. no wheezing or rhonchi Abd: soft, nontender, +BS Ext: moving all extremities skin: no rashes Results Results 24hrs Laboratory Tests Test 10/19/18 04:32 White Blood Count 8.0 Red Blood Count 4.47 Hemoglobin 13.5 Hematocrit 39.8 Mean Corpuscular Volume 89.0 Mean Corpuscular Hemoglobin 30.2 Mean Corpuscular Hemoglobin Concent 33.9 Red Cell Distribution Width 13.3 Platelet Count 317 Mean Platelet Volume 11.1 H Immature Granulocytes % 0.400 Neutrophils % 54.7 Lymphocytes % 32.5 Monocytes % 7.4 Eosinophils % 4.1 Basophils % 0.9 Nucleated Red Blood Cells % 0.0 Immature Granulocytes # 0.030 Neutrophils # 4.4 Lymphocytes # 2.6 Monocytes # 0.6 Eosinophils # 0.3 Basophils # 0.1 Nucleated Red Blood Cells # 0.0 Sodium Level 141 Potassium Level 3.8 Chloride Level 105 Carbon Dioxide Level 27 Anion Gap 9 Blood Urea Nitrogen 16 Creatinine 0.71 Est Glomerular Filtrat Rate mL/min > 60 Glucose Level 100 Calcium Level 9.5 Imaging Imaging PROCEDURE: MR BRAIN WITHOUT CONTRAST CLINICAL INDICATION: 53-year-old female with left-sided numbness. TECHNIQUE: An MRI of the brain was performed on a [employer] HDxt 3T scanner utilizing the following sequences: Sagittal T1, axial T2, axial FLAIR, coronal gradient echo, sagittal FLAIR, axial T1 and axial EPI diffusion (b1000) with ADC maps. The images reviewed on a PACS workstation. COMPARISON: CT brain October 17, 2018. FINDINGS: The ventricles are normal size, shape and position. There is no evidence for mass effect or midline shift. There are no intracranial areas of abnormal si gnal intensity. There is no significant susceptibility artifact to suggest blood products. There is no evidence for restricted diffusion to suggest an acute vascular event. There is mild polypoidal mucosal thickening within the inferior maxillary sinuses. IMPRESSION: 1. The intracranial contents are unremarkable on this noncontrast MRI of the brain. 2. Mild polypoidal mucosal thickening inferior maxillary sinuses. .Sudheer Eller MD, MD Date Time Electronically viewed and signed by .Sudheer Eller MD, on 10/19/2018 07:58 .M/ CC: MERLE MORENO [phone] Medications Medication Current Medications Aspirin (Halfprin) 81 mg DAILY PO Last administered on 10/19/18 09:02; Admin Dose 81 MG; Start 10/18/18 at 09:00 Atorvastatin Calcium (Lipitor) 20 mg HS PO Last administered on 10/18/18at 20:11; Admin Dose 20 MG; Start 10/17/18 at 21:00 Ondansetron HCl (Zofran Inj) 4 mg Q6H PRN IV NAUSEA AND/OR VOMITING Last administered on 10/17/18 20:26; Admin Dose 4 MG; Start 10/17/18 at 14:00 Acetaminophen/ Hydrocodone Bitart ([place] (5/325)) 1 tab Q6H PRN PO MODERATE PAIN LEVEL 4-6; Start 10/17/18 at 14:00 Docusate Sodium (Colace) 100 mg BID PRN PO CONSTIPATION; Start 10/17/18 at 14:00 Famotidine (Pepcid) 20 mg BID PO Last administered on 10/19/18 09:02; Admin Dose 20 MG; Start 10/17/18 at 21:00 Acetaminophen (Tylenol Tab) 650 mg Q6H PRN PO MILD PAIN(1-3)OR ELEVATED TEMP Last administered on 10/18/18at 14:36; Admin Dose 650 MG; Start 10/18/18 at 14:30 Lorazepam (Ativan) 0.5 mg ONCE PRN IV AGITATION; Start 10/18/18 at 22:30; Stop 10/19/18 at 22:29 MERLE MORENO Oct 19, 2018 12:39
[2018-10-19] MEDS ORDERED: METHYLPREDNISOLONE 125 MG INJ IV ONE (13:00)
[2018-10-19] MEDS ORDERED: METOCLOPRAMIDE 10 MG INJ IV ONE (13:00)
[2018-10-19] MEDS ORDERED: DEXAMETHASONE 10 MG/ML 1 ML INJ IV ONE (13:00)
[2018-10-19] MEDS ORDERED: SUMATRIPTAN 25 MG TAB PO PRN (13:00)
[2018-10-19] MEDS ORDERED: SUMATRIPTAN 50 MG TAB PO ONE (14:00)
[2018-10-19] MEDS: TOPIRAMATE 25 MG TAB PO SCH ×2 (14:38→20:28)
[2018-10-19] MEDS: ATORVASTATIN 20 MG TAB PO SCH (20:28)
[2018-10-20] VITALS (9 sets, daily range): BP systolic 131–149; BP diastolic 68–84; PULSE 66–91; RESP 18–19
[2018-10-20] MEDS: TOPIRAMATE 25 MG TAB PO SCH ×2 (08:41→21:48)
[2018-10-20] MEDS: FAMOTIDINE 20 MG TAB PO SCH ×2 (08:41→21:48)
[2018-10-20] MEDS: ASPIRIN (EC) 81 MG TAB PO SCH (08:41)
--- NOTE | 2018-10-20 09:02 | PN ---
Date/Time of Note Date/Time of Note DATE: 10/20/18 TIME: 09:02 Assessment/Plan VTE Prophylaxis Risk score (from Ns)>0 risk: 2 SCD applied (from Ns): Yes Lines/Catheters IV [facility]from [facility] Saline Lock Assessment/Plan Result Diagram: 10/20/1852010/20/18520 Results 24hrs Laboratory Tests Test 10/20/18 05:21 White Blood Count 14.9 #H Red Blood Count 4.75 Hemoglobin 14.2 Hematocrit 41.7 Mean Corpuscular Volume 87.8 Mean Corpuscular Hemoglobin 29.9 Mean Corpuscular Hemoglobin Concent 34.1 Red Cell Distribution Width 12.9 Platelet Count 360 Mean Platelet Volume 11.2 H Immature Granulocytes % 0.600 H Neutrophils % 88.1 H Lymphocytes % 9.0 L Monocytes % 2.2 Eosinophils % 0.0 Basophils % 0.1 Nucleated Red Blood Cells % 0.0 Immature Granulocytes # 0.090 H Neutrophils # 13.1 H Lymphocytes # 1.3 Monocytes # 0.3 Eosinophils # 0.0 Basophils # 0.0 Nucleated Red Blood Cells # 0.0 Sodium Level 140 Potassium Level 4.6 Chloride Level 104 Carbon Dioxide Level 22 Anion Gap 14 H Blood Urea Nitrogen 17 Creatinine 0.64 Est Glomerular Filtrat Rate mL/min > 60 Glucose Level 124 Calcium Level 10.0 Exam/Review of Systems Exam Vitals Vital Signs Date Temp Pulse Resp B/P (MAP) Pulse Ox O2 O2 Flow FiO2 Time Delivery Rate 10/20/18 98.2 90 18 131/79 95 07:33 (96) 10/20/18 Room Air 04:00 10/17/18 2 09:35 Intake and Output 10/19/18 10/19/18 10/20/18 1515:00 23:00 07:00 IntakeIntake Total 600 ml 500 ml BalanceBalance 600 ml 500 ml Results Results 24hrs Laboratory Tests Test 10/20/18 05:21 White Blood Count 14.9 #H Red Blood Count 4.75 Hemoglobin 14.2 Hematocrit 41.7 Mean Corpuscular Volume 87.8 Mean Corpuscular Hemoglobin 29.9 Mean Corpuscular Hemoglobin Concent 34.1 Red Cell Distribution Width 12.9 Platelet Count 360 Mean Platelet Volume 11.2 H Immature Granulocytes % 0.600 H Neutrophils % 88.1 H Lymphocytes % 9.0 L Monocytes % 2.2 Eosinophils % 0.0 Basophils % 0.1 Nucleated Red Blood Cells % 0.0 Immature Granulocytes # 0.090 H Neutrophils # 13.1 H Lymphocytes # 1.3 Monocytes # 0.3 Eosinophils # 0.0 Basophils # 0.0 Nucleated Red Blood Cells # 0.0 Sodium Level 140 Potassium Level 4.6 Chloride Level 104 Carbon Dioxide Level 22 Anion Gap 14 H Blood Urea Nitrogen 17 Creatinine 0.64 Est Glomerular Filtrat Rate mL/min > 60 Glucose Level 124 Calcium Level 10.0 Medications Medication Current Medications Aspirin (Halfprin) 81 mg DAILY PO Last administered on 10/20/18 08:41; Admin Dose 81 MG; Start 10/18/18 at 09:00 Atorvastatin Calcium (Lipitor) 20 mg HS PO Last administered on 10/19/18 20:28; Admin Dose 20 MG; Start 10/17/18 at 21:00 Ondansetron HCl (Zofran Inj) 4 mg Q6H PRN IV NAUSEA AND/OR VOMITING Last administered on 10/17/18 20:26; Admin Dose 4 MG; Start 10/17/18 at 14:00 Acetaminophen/ Hydrocodone Bitart ([place] (5/325)) 1 tab Q6H PRN PO MODERATE PAIN LEVEL 4-6 Last administered on 10/20/18 04:13; Admin Dose 1 TAB; Start 10/17/18 at 14:00 Docusate Sodium (Colace) 100 mg BID PRN PO CONSTIPATION; Start 10/17/18 at 14:00 Famotidine (Pepcid) 20 mg BID PO Last administered on 10/20/18 08:41; Admin Dose 20 MG; Start 10/17/18 at 21:00 Acetaminophen (Tylenol Tab) 650 mg Q6H PRN PO MILD PAIN(1-3)OR ELEVATED TEMP Last administered on 10/18/18 14:36; Admin Dose 650 MG; Start 10/18/18 at 14:30 Sumatriptan Succinate (Imitrex) 25 mg Q6H PRN PO migraine headache Last administered on 10/19/18 23:52; Admin Dose 25 MG; Start 10/19/18 at 13:00 Topiramate (Topamax) 25 mg BID PO Last administered on 10/20/18 08:41; Admin Dose 25 MG; Start 10/19/18 at 14:30 SHAR WATKINS MD Oct 20, 2018 09:02
--- NOTE | 2018-10-20 11:04 | CONS ---
Assessment/Plan Assessment/Plan Hospital Course 53 F s/ reported PMHx, who presents for evaluation of left hemisensory loss in the context of headache and dizziness. The clinical picture could be consistent w/ complex migraine. MRI brain is reassuringly without evidence of acute intracranial pathology. UDS neg P: Cont Topamax 25mg bid for migraine ppx, to be titrated to goal as an outpatient Avoid Imitrex given patient intolerance; Try Toradol iv prn instead.. Other management per primary PT/OT/ST as necessary Other management and supportive care per primary Will follow Consultation Date/Type/Reason Admit Date/Time Oct 19, 2018 at 15:52 Type of Consult Neurology Reason for Consultation left sided numbness Requesting Provider: MERLE MORENO Date/Time of Note DATE: 10/20/18 TIME: 11:02 24 HR Interval Summary Free Text/Dictation Continues acute care. Notes insomnia following a midnight medication.. Exam Vital Signs Vitals Vital Signs Date Temp Pulse Resp B/P (MAP) Pulse Ox O2 O2 Flow FiO2 Time Delivery Rate 10/20/18 83 08:01 10/20/18 98.2 18 131/79 95 07:33 (96) 10/20/18 Room Air 04:00 10/17/18 2 09:35 Intake and Output 10/19/18 10/19/18 10/20/18 1515:00 23:00 07:00 IntakeIntake Total 600 ml 500 ml BalanceBalance 600 ml 500 ml Exam PE: Gen Appearance: No Apparent Distress HEENT: Normocephalic Cardiovascular: Regular rate Abdomen: Soft Extremities: Dry NE: The patient was alert and oriented. Language was normal. Fund of knowledge was normal. Pupils were equal and reactive to light. There was no afferent pupillary defect. Visual novak were normal. Funduscopic examination was limited. Extra-ocular movements were full. Ptosis was absent. There was no nystagmus. Facial sensation was normal. Face was symmetric with normal strength. Hearing was intact. Palate movements were normal. Neck strength was normal. There was normal tongue bulk and speed of movement. Tone was normal. Muscle bulk was normal. I did not see fasciculations. Arms and legs were symmetric. Vibration sensation was normal. Temperature and pinprick sensation was normal. Rapid alternating movements were normal. There was no dysmetria. There was no intention tremor. Gait was deferred due to bedrest. Arm and leg reflexes were symmetric. Santiago's sign was absent. Plantar responses were flexor. ADONAY JASON Oct 20, 2018 11:04
--- NOTE | 2018-10-20 12:07 | PN ---
Date/Time of Note Date/Time of Note DATE: 10/20/18 TIME: 12:03 Assessment/Plan VTE Prophylaxis Risk score (from Ns)>0 risk: 1 SCD applied (from Ns): No SCD contraindicated: low risk/ambulating Pharmacological prophylaxis: heparin Lines/Catheters IV Catheter Type (from [facility]): Saline Lock Assessment/Plan Problems: (1) Numbness Status: Acute Comment: Normal neurologic exam is done well. Fortunately the workup has been unrevealing. I am in agreement with neurology that this actually is most suggestive of complicated migraine syndrome. She has a long history of migraine syndrome that she is always viewed as not migraine because they were terrible headaches. If we are going to stipulate that this is migraine syndrome she has 8-10 headache days per month minimum based on my review with her. This would therefore meet criteria for initiation of prophylactic therapy which is already been done using topiramate. In addition to an aspirin a day would also be indicated, and given that worst of stipulating this possible complicated migraine syndrome low-dose verapamil as well. Given the patient's doing well she can move off of telemetry, and possible discharge tomorrow (2) Migraine syndrome Status: Chronic Comment: As above (3) Grade I diastolic dysfunction Status: Chronic Comment: Verapamil for this diagnosis (4) Mixed hyperlipidemia Status: Chronic Comment: Continue statin therapy (5) Maxillary sinusitis, chronic Status: Chronic Comment: Noted. (6) Abnormal finding on urinalysis Status: Acute Comment: Recheck the test Result Diagram: 10/20/18 0521 10/20/18 0521 Results 24hrs Laboratory Tests Test 10/20/18 05:21 White Blood Count 14.9 #H Red Blood Count 4.75 Hemoglobin 14.2 Hematocrit 41.7 Mean Corpuscular Volume 87.8 Mean Corpuscular Hemoglobin 29.9 Mean Corpuscular Hemoglobin Concent 34.1 Red Cell Distribution Width 12.9 Platelet Count 360 Mean Platelet Volume 11.2 H Immature Granulocytes % 0.600 H Neutrophils % 88.1 H Lymphocytes % 9.0 L Monocytes % 2.2 Eosinophils % 0.0 Basophils % 0.1 Nucleated Red Blood Cells % 0.0 Immature Granulocytes # 0.090 H Neutrophils # 13.1 H Lymphocytes # 1.3 Monocytes # 0.3 Eosinophils # 0.0 Basophils # 0.0 Nucleated Red Blood Cells # 0.0 Sodium Level 140 Potassium Level 4.6 Chloride Level 104 Carbon Dioxide Level 22 Anion Gap 14 H Blood Urea Nitrogen 17 Creatinine 0.64 Est Glomerular Filtrat Rate mL/min > 60 Glucose Level 124 Calcium Level 10.0 Subjective 24 Hr Interval Summary Free Text/Dictation She reports that she has not had any significant headaches since she is been admitted. No further neurologic symptoms. Constitutional: no complaints Respiratory: no complaints Cardiovascular: no complaints Gastrointestinal: no complaints Genitourinary: no complaints Exam/Review of Systems Exam Vitals Vital Signs Date Temp Pulse Resp B/P (MAP) Pulse Ox O2 O2 Flow FiO2 Time Delivery Rate 10/20/18 98.1 77 19 137/68 97 11:21 (91) 10/20/18 Room Air 04:00 10/17/18 2 09:35 Intake and Output 10/19/18 10/19/18 10/20/18 1515:00 23:00 07:00 IntakeIntake Total 600 ml 500 ml BalanceBalance 600 ml 500 ml Constitutional: alert, oriented Neck: supple, non-tender Respiratory: clear to auscultation, normal air movement Cardiovascular: regular rate and rhythm Neurological: 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, nl mental status Results Results 24hrs Laboratory Tests Test 10/20/18 05:21 White Blood Count 14.9 #H Red Blood Count 4.75 Hemoglobin 14.2 Hematocrit 41.7 Mean Corpuscular Volume 87.8 Mean Corpuscular Hemoglobin 29.9 Mean Corpuscular Hemoglobin Concent 34.1 Red Cell Distribution Width 12.9 Platelet Count 360 Mean Platelet Volume 11.2 H Immature Granulocytes % 0.600 H Neutrophils % 88.1 H Lymphocytes % 9.0 L Monocytes % 2.2 Eosinophils % 0.0 Basophils % 0.1 Nucleated Red Blood Cells % 0.0 Immature Granulocytes # 0.090 H Neutrophils # 13.1 H Lymphocytes # 1.3 Monocytes # 0.3 Eosinophils # 0.0 Basophils # 0.0 Nucleated Red Blood Cells # 0.0 Sodium Level 140 Potassium Level 4.6 Chloride Level 104 Carbon Dioxide Level 22 Anion Gap 14 H Blood Urea Nitrogen 17 Creatinine 0.64 Est Glomerular Filtrat Rate mL/min > 60 Glucose Level 124 Calcium Level 10.0 Medications Medication Current Medications Aspirin (Halfprin) 81 mg DAILY PO Last administered on 10/20/18at 08:41; Admin Dose 81 MG; Start 10/18/18 at 09:00 Atorvastatin Calcium (Lipitor) 20 mg HS PO Last administered on 10/19/18 20:28; Admin Dose 20 MG; Start 10/17/18 at 21:00 Ondansetron HCl (Zofran Inj) 4 mg Q6H PRN IV NAUSEA AND/OR VOMITING Last administered on 10/17/18 20:26; Admin Dose 4 MG; Start 10/17/18 at 14:00 Acetaminophen/ Hydrocodone Bitart ([place] (5/325)) 1 tab Q6H PRN PO MODERATE PAIN LEVEL 4-6 Last administered on 10/20/18 04:13; Admin Dose 1 TAB; Start 10/17/18 at 14:00 Docusate Sodium (Colace) 100 mg BID PRN PO CONSTIPATION; Start 10/17/18 at 14:00 Famotidine (Pepcid) 20 mg BID PO Last administered on 10/20/18 08:41; Admin Dose 20 MG; Start 10/17/18 at 21:00 Acetaminophen (Tylenol Tab) 650 mg Q6H PRN PO MILD PAIN(1-3)OR ELEVATED TEMP Last administered on 10/18/18 14:36; Admin Dose 650 MG; Start 10/18/18 at 14:30 Sumatriptan Succinate (Imitrex) 25 mg Q6H PRN PO migraine headache Last administered on 10/19/18 23:52; Admin Dose 25 MG; Start 10/19/18 at 13:00 Topiramate (Topamax) 25 mg BID PO Last administered on 10/20/18 08:41; Admin Dose 25 MG; Start 10/19/18 at 14:30 MICHAEL VALLE MD Oct 20, 2018 12:07
[2018-10-20] MEDS: VERAPAMIL (SR) 120 MG TAB PO SCH (12:56)
[2018-10-20] MEDS ORDERED: ZOLPIDEM 5 MG TAB PO PRN (16:30)
[2018-10-20] MEDS: ATORVASTATIN 20 MG TAB PO SCH (21:48)
[2018-10-21 01:50] VITALS: BP 112/77; PULSE 71; RESP 18
[2018-10-21 07:50] VITALS: BP 124/73; PULSE 70; RESP 16
--- NOTE | 2018-10-21 08:36 | DS ---
Date/Time of Note Date/Time of Note DATE: 10/21/18 TIME: 08:31 Discharge Summary Admission/Discharge Info Admit Date/Time Oct 19, 2018 at 15:52 Discharge Date/Time October 21, 2018 Discharge Diagnosis Complicated migraine syndrome; mixed hyperlipidemia; abnormal urinalysis; grade 1 diastolic dysfunction; chronic maxillary sinusitis Patient Condition: Good Consults Urology-Dr. Navarro; Procedures Echocardiogram Conclusions: Normal left ventricular systolic function. Normal left ventricular cavity size. Normal left ventricular wall thickness. Ejection fraction is visually estimated at 55-60 %. Tissue Doppler/Mitral Doppler indices are consistent with impaired relaxation (Stage I diastolic dysfunction). No significant valvular stenosis or regurgitation seen. Estimated peak PA systolic pressure 25 mmHg based on RA pressure of 3 mmHg. Electronically Signed By: Sebas Quinteros MRI scan brain IMPRESSION: 1. The intracranial contents are unremarkable on this noncontrast MRI of the brain. 2. Mild polypoidal mucosal thickening inferior maxillary sinuses. CT scan brain CT scan face carotid Doppler Hx of Present Illness Hx of Present Illness 53-year-old female who had presented to the emergency room with left-sided numbness that started approximately 2 days ago with some associated dizziness and frontal headaches. AND DIZZINESS There is no focal weakness, at this time symptoms have somewhat improved. She is being admitted for stroke workup. There is no fever. No chest pain, no abdominal pain, no nausea or vomiting. She denies dysuria or hematuria.This is the first episode, patient has not had history of similar in the past Hx of Present Illness 53-year-old female who had presented to the emergency room with left-sided nu mbness that started approximately 2 days ago with some associated dizziness and frontal headaches. There is no focal weakness, at this time symptoms have somewhat improved. She is being admitted for stroke workup. There is no fever. No chest pain, no abdominal pain, no nausea or vomiting. She denies dysuria or hematuria.This is the first episode, patient has not had history of similar in the past Past medical history: patient denies Surgical history: Allergies penicillins Social history denies tobacco alcohol or illicit drug use Family history: Noncontributory Hospital Course [facility] 53-year-old woman who is admitted with the above neurologic symptoms. Full imaging studies and testing were unremarkable. However she does have a history of migraine headaches. The neurology consult proffered the opinion that this was possibly complicated migraine syndrome which I fully agree with. The patient has been placed on migraine prophylactic therapy as she makes criteria for that regardless. She is now stable and significantly improved and ready for discharge home. She has capacity for medical decision making she has no known communicable diseases. Home Meds Discontinued Scripts Albuterol Sulfate* (Ventolin HFA*) 18 Gm Hfa.aer.ad, 2 PUFF INHALATION Q4H, #1 INHALER Prov:WILIAN LUNA PA-C 05/27/18 Benzonatate* (Tessalon Perle*) 100 Mg Capsule, 100 MG PO Q8H PRN for COUGH, #20 CAP Prov:WILIAN LUNA PA-C 05/27/18 Prednisone* (Prednisone*) 20 Mg Tab, 40 MG PO DAILY for 4 Days, TAB Prov:WILIAN LUNA PA-C 05/27/18 Ofloxacin* (Ocuflox*) 0.3%-5 Ml Ophth Drops, 1 DROP LEFT EYE QID, #1 BOTTLE Prov:ALEXIS JOHNSON PA-C 04/17/18 Follow-up Plan Regular physician within 3 weeks. Primary Care Provider Care Physician No Primary Time spent on discharge: > 30 minutes Pending Labs Laboratory Tests Test 10/20/18 13:00 Urine Color YELLOW (YELLOW) Urine Clarity SLIGHTLY CLOUDY (CLEAR) Urine pH 6.0 (5.0-9.0) Urine Specific [place] 1.023 (1.003-1.030) Urine Ketones NEGATIVE mg/dL (NEGATIVE) Urine Nitrite NEGATIVE mg/dL (NEGATIVE) Urine Bilirubin NEGATIVE mg/dL (NEGATIVE) Urine Urobilinogen NEGATIVE mg/dL (NEGATIVE) Urine Leukocyte Esterase NEGATIVE Nancy/ul Urine Microscopic RBC 6 /HPF (0-5) Urine Microscopic WBC 5 /HPF (0-5) Urine Squamous Epithelial Cells FEW /HPF (FEW) Urine Bacteria MANY /HPF (NONE SEEN) Urine Mucus MANY /HPF (NONE SEEN) Urine Hemoglobin 1+ mg/dL (NEGATIVE) Urine Glucose NEGATIVE mg/dL (NEGATIVE) Urine Total Protein NEGATIVE mg/dl (NEGATIVE) MICHAEL VALLE MD Oct 21, 2018 08:36
--- NOTE | 2018-10-21 08:37 | PDOCDIS ---
Discharge Instructions DIAGNOSIS Discharge Diagnosis Complicated migraine syndrome; mixed hyperlipidemia; abnormal urinalysis; grade 1 diastolic dysfunction; chronic maxillary sinusitis CONDITION [id number] Patient Condition: [id number] Good HOME CARE INSTRUCTIONS: [id number] Diet Instructions: [id number] Regular ACTIVITY: [id number] Activity Restrictions: [id number] No Restrictions FOLLOW UP/APPOINTMENTS Follow-up Plan Regular physician within 3 weeks. MICHAEL VALLE MD Oct 21, 2018 08:37
[2018-10-21] MEDS ORDERED: ASPI-1044 PO (08:39)
[2018-10-21] MEDS ORDERED: VER120SR PO (08:39)
[2018-10-21] MEDS ORDERED: TOPI25TA PO (08:39)
[2018-10-21] MEDS ORDERED: ATOR20TA65 PO (08:39)
[2018-10-21] MEDS: FAMOTIDINE 20 MG TAB PO SCH (08:56)
[2018-10-21] MEDS: ASPIRIN (EC) 81 MG TAB PO SCH (08:56)
[2018-10-21] MEDS: VERAPAMIL (SR) 120 MG TAB PO SCH (08:57)
[2018-10-21] MEDS: TOPIRAMATE 25 MG TAB PO SCH (08:57)
--- NOTE | 2018-10-21 09:46 | CONS ---
Assessment/Plan Assessment/Plan Hospital Course 53 F s/ reported PMHx, who presents for evaluation of left hemisensory loss in the context of headache and dizziness. The clinical picture could be consistent w/ complex migraine. MRI brain is reassuringly without evidence of acute intracranial pathology. UDS neg P: Cont Topamax 25mg bid for migraine ppx, to be titrated to goal as an outpatient Avoid Imitrex given patient intolerance; Try Toradol iv prn instead.. Other management per primary PT/OT/ST as necessary Other management and supportive care per primary Neurologically cleared for d/c Consultation Date/Type/Reason Admit Date/Time Oct 19, 2018 at 15:52 Type of Consult Neurology Reason for Consultation left sided numbness Requesting Provider: MERLE MORENO Date/Time of Note DATE: 10/21/18 TIME: 09:46 24 HR Interval Summary Free Text/Dictation Continues acute care Exam Vital Signs Vitals Vital Signs Date Temp Pulse Resp B/P (MAP) Pulse Ox O2 O2 Flow FiO2 Time Delivery Rate 10/21/18 98.6 70 16 124/73 96 Room Air 07:50 (90) 10/17/18 2 09:35 Intake and Output 10/20/18 10/20/18 10/21/18 1515:00 23:00 07:00 IntakeIntake Total 500 ml 200 ml BalanceBalance 500 ml 200 ml Exam Comprehensive completed; stable from prior ADONAY JASON Oct 21, 2018 09:46
[2018-10-21] MEDS ORDERED: FOSFOMYCIN 3 GM PACKET PO ONE (10:00)
== END 2018-10-21 10:50 | disposition home or self-care (01) | DRG 103 ==
LOC: E/R 09:17 → 6WM 10:59 → OBSVTOIN 10-19 15:52 → 2NE 10-20 20:09
PROVIDERS: ADMIT Family Medicine; ATTEND Family Medicine
DX: G43.109 Migraine with aura, not intractable, without status migrainosus (principal); N39.0 Urinary tract infection, site not specified; B95.1 Streptococcus, group B, as the cause of diseases classified elsewhere; E78.2 Mixed hyperlipidemia; J32.0 Chronic maxillary sinusitis; F17.200 Nicotine dependence, unspecified, uncomplicated; R20.0 Anesthesia of skin; Z79.82 Long term (current) use of aspirin
CPT/HCPCS: 36415; 70450; 70486; 70551; 71045; 80048; 80053; 80061; 80307; 81001; 83036; 83735; 84100; 84443; 84484; 85025; 85610; 85730; 87086; 92610; 93005; 93306; 93880; 97161; G0378; J2060; J2405; J2765; J2930

== ENCOUNTER 2018-10-31 15:33 | Emergency (ER) | payer MEDICAID ==
[~2018-10-31] VITALS: Ht 162.6 cm; Wt 78.2 kg
[~2018-10-31 15:33] MED LIST changes: -ALBU18HF INHALATION; +ASPI-1044 PO; +ATOR20TA65 PO; -BENZ-6 PO; -OFLO5DRO46 LEFT EYE; -PRED20TA PO; +TOPI25TA PO; +VER120SR PO
[2018-10-31 15:48] VITALS: BP 131/70; PULSE 71; RESP 19; Ht 162.6 cm; Wt 78.2 kg
--- NOTE | 2018-10-31 17:36 | ERD ---
ER Documentation Chief Complaint Chief Complaint LEFT EYE REDNESS; HEADACHE HPI 53-year-old female with a history of complex migraines presents with complaint of right eye redness and intermittent headache. States that the headache is very mild and she is not currently bothered by it but states that she just wants some reassurance considering that she was just here on October 21 for concern of possible stroke which turned out to just be complex migraine. MRI was done at that time and results were within normal limits. Denies any numbness, tingling, weakness, dizziness, eye pain, vision problems, eye discharge, photophobia, nausea, vomiting, diarrhea, fevers. ROS All systems reviewed and are negative except as per history of present illness. Medications Home Meds Active Scripts Topiramate* (Topamax*) 25 Mg Tablet, 25 MG PO BID for 30 Days, #60 TAB 2 Refills To prevent headaches Prov:MICHAEL VALLE MD 10/21/18 Aspirin Delayed Release (Aspirin Delayed Release) 81 Mg Tablet.dr, 81 MG PO DAILY for 30 Days, #30 TAB 2 Refills Prov:MICHAEL VALLE MD 10/21/18 Verapamil Hcl* (Isoptin SR*) 120 Mg Tabsr, 120 MG PO DAILY for 30 Days, #30 TAB 2 Refills For heart and to prevent migraines Prov:MICHAEL VALLE MD 10/21/18 Atorvastatin Calcium (Atorvastatin Calcium) 20 Mg Tablet, 20 MG PO HS for 30 Days, #30 TAB 2 Refills For cholesterol Prov:MICHAEL VALLE MD 10/21/18 Allergies Allergies: Coded Allergies: Penicillins (Unverified Allergy, Unknown, 10/17/18) PMhx/Soc History of Surgery: Yes (multiple cosmetic surgery) Anesthesia Reaction: No Hx Neurological Disorder: No Hx Respiratory Disorders: No Hx Cardiac Disorders: No Hx Psychiatric Problems: No Hx Miscellaneous Medical Probl: No Hx Alcohol Use: Yes (OCCASIONAL) Hx Substance Use: No Hx Tobacco Use: No Smoking Status: Never smoker FmHx Family History: No diabetes, No coronary disease, No other Physical Exam Vitals Vital Signs Date Temp Pulse Resp B/P (MAP) Pulse Ox O2 O2 Flow FiO2 Time Delivery Rate 10/31/18 98.4 71 19 131/70 98 15:48 (90) Physical Exam Const: No acute distress Head: Atraumatic Eyes: Normal Conjunctiva ENT: Normal External Ears, Nose and Mouth. Small subconjunctival hemorrhage noted on right eye. No foreign bodies or obvious laceration noted. EOMs intact. PERRLA. Neck: Full range of motion. No meningismus. Resp: Clear to auscultation bilaterally Cardio: Regular rate and rhythm, no murmurs Abd: Soft, non tender, non distended. Normal bowel sounds Skin: No petechiae or rashes Back: No midline or flank tenderness Ext: No cyanosis, or edema Neur: Awake and alert Psych: Normal Mood and Affect Neuro: M/S: Alert and oriented Face: EOMI, face and pharynx with normal sensation and function Motor: Normal strength throughout Sensation: Normal sensation throughout Speech: Normal Cerebel: Normal coordination Normal gait Normal finger to nose DTR: 2+ and symmetric upper/lower extremities Procedures/MDM MDM: MRI was just performed on October 21 and was within normal limits. She was diagnosed at that time with complex migraines. Patient denies any focal neurological deficits and her neuro exam is within normal limits. Patient most likely experiencing recurrent headache. I have low suspicion for intracranial hemorrhage, elevated intracranial pressure, intracranial mass, aneurysm, meningitis, malignant hypertension, giant cell arteritis, carotid dissection, intracranial abscess, cerebral venous thrombosis, CO2 poisoning, or other emergent causes of headache based on patients history and exam. Patient's complaint of eye redness is consistent with subconjunctival hemorrhage. I explained to patient that this is nothing to worry about and reassured her. Advised patient that if she began having any pain in the eye or vision problems she needs to follow-up in the ER. At time of discharge patient stated that she felt comfortable going home and that the main reason why she came here was because she was admitted 2 weeks ago and just wanted to make sure that she was not having and emergent problem. Low suspicion for glaucoma, uveitis, retinal detachment,. Patient discharged with strict ER precautions. Patient advised to follow up with PMD. All questions answered at discharge. Patient's right Departure Diagnosis: Primary Impression: Subconjunctival hematoma Laterality: left Qualified Codes: H11.32 - Conjunctival hemorrhage, left eye Additional Impression: Headache Headache type: unspecified Headache chronicity pattern: acute headache Intractability: not intractable Qualified Codes: R51 - Headache Condition: Stable Patient Instructions: Self-Care for Headaches, Subconjunctival Hemorrhage Referrals: [facility] YOU HAVE RECEIVED A MEDICAL SCREENING EXAM AND THE RESULTS INDICATE THAT YOU DO NOT HAVE A CONDITION THAT REQUIRES URGENT TREATMENT IN THE EMERGENCY DEPARTMENT. FURTHER EVALUATION AND TREATMENT OF YOUR CONDITION CAN WAIT UNTIL YOU ARE SEEN IN YOUR DOCTORS OFFICE WITHIN THE NEXT 1-2 DAYS. IT IS YOUR RESPONSIBILITY TO MAKE AN APPOINTMENT FOR FOLOW-UP CARE. IF YOU HAVE A PRIMARY DOCTOR --you should call your primary doctor and schedule an appointment IF YOU DO NOT HAVE A PRIMARY DOCTOR YOU CAN CALL OUR PHYSICIAN REFERRAL HOTLINE AT IF YOU CAN NOT AFFORD TO SEE A PHYSICIAN YOU CAN CHOSE FROM THE FOLLOWING [facility] [address] [facility] [address] [facility] [facility] [address] [facility] [address] [facility] [address] [facility]. [facility]. [address] Additional Instructions: FOLLOW UP WITH YOUR PRIMARY CARE PHYSICIAN TOMORROW.Return to this facility if you are not improving as expected. AMY ELIZABETH Oct 31, 2018 17:36
== END 2018-10-31 17:14 | disposition home or self-care (01) ==
LOC: FTE 15:33
DX: H11.32 Conjunctival hemorrhage, left eye (principal)
CPT/HCPCS: 99282